=== PATIENT | male | born 1935 | race Two or more races ===

== ENCOUNTER → 2024-05-28 14:41 | Outpatient (REF) | payer OTHER, SELFPAY | LOC: RCS 14:41 | PROVIDERS: ATTENDING PHYSICIAN Internal Medicine Cardiovascular Disease; FAMILY PHYSICIAN Internal Medicine Geriatric Medicine | DX: I48.21 Permanent atrial fibrillation (principal); I34.0 Nonrheumatic mitral (valve) insufficiency | CPT/HCPCS: 93306 ==

== ENCOUNTER → 2024-06-14 13:37 | Outpatient (REF) | payer OTHER, SELFPAY | LOC: RSP 13:37 | PROVIDERS: ATTENDING PHYSICIAN Internal Medicine Cardiovascular Disease; FAMILY PHYSICIAN Internal Medicine Geriatric Medicine; REFERRING PHYSICIAN Internal Medicine Cardiovascular Disease | DX: I27.20 Pulmonary hypertension, unspecified (principal) | CPT/HCPCS: 94727; 94729; 71046; 88738; 94060 ==

== ENCOUNTER → 2025-04-01 14:52 | Outpatient (REF) | payer OTHER, MEDICAID, SELFPAY | LOC: RCS 14:52 | PROVIDERS: ATTENDING PHYSICIAN Internal Medicine Cardiovascular Disease; FAMILY PHYSICIAN Internal Medicine Geriatric Medicine | DX: I27.21 Secondary pulmonary arterial hypertension (principal); I50.32 Chronic diastolic (congestive) heart failure | CPT/HCPCS: 93306 ==